=== PATIENT | female | born 1960 | race Caucasian/White ===

== ENCOUNTER 2018-12-05 17:56 | Inpatient (IN) ==
--- NOTE | 2018-12-05 18:21 | Emergency Department Note ---
Recheck HPI - General Source: patient, EMS Limitations: no limitations <Adrianne Christianson - Last Filed: 12/05/18 23:13> - General Source: patient Mode of arrival: ambulatory Limitations: no limitations <Isaac Biswas - Last Filed: 12/06/18 09:46> - General Chief Complaint: Recheck/Abnormal Lab/Rx Stated Complaint: elevated potassium Time Seen by Provider: 12/05/18 18:04 - History of Present Illness HPI Narrative: 58-year-old female in ED for lab recheck. Patient has history of chronic kidney disease and on dialysis for 30+ years. Patient missed her dialysis today. She recently moved from [place] to [place] due to family lives in [facility]. Patient states she had difficult night with blood sugar 60 and had difficult time getting staff to help her raise her blood sugar and check it on a regular basis. Patient's last blood sugar was 85 at 2:30 in the morning. Patient had requested staff to advise dialysis unit she would be missing her appointment today. Patient then had blood draw today and had potassium 5.9. Patient was advised to come into the ED for further evaluation. Patient states she has h istory of [place] without stents, strokes, seizures along with her chronic kidney failure, hyperlipidemia, hypothyroidism, major depressive disorder, GERD, IBS without diarrhea, type 2 diabetes with diabetic kidney complication. Patient is allergic to azithromycin, codeine, Benadryl, Depakote, Phenergan, Robitussin, red dye. (Adrianne Christianson) Patient was sent over from [facility] by Dr. Baldwin, customer assistance associate, for elevated potassium. Patient is on dialysis. I discussed her case with Adrianne ESTRADA and agree with her evaluation management documentation. At shift change full care was handed over to me. At the time of admission to the ER she was not feeling too bad but was concerned about her blood sugars. She missed dialysis today as noted Patient is a full code (Isaac Biswas) - Related Data Home Medications Medication Instructions Recorded Confirmed Atorvastatin [Lipitor] 10 mg PO HS 12/05/18 12/06/18 Cholecalciferol (Vitamin D3) 2,000 unit PO DAILY 12/05/18 12/06/18 [Vitamin D] Clopidogrel Bisulfate [Plavix] 75 mg PO DAILY 12/05/18 12/06/18 Fish Oil 1,000 mg PO DAILY 12/05/18 12/06/18 Fluticasone Propionate [Flovent 50 mcg IH DAILY 12/05/18 12/06/18 Diskus] Folic Acid/Vitamin B Comp W-C 1 tab PO DAILY 12/05/18 12/06/18 [Diatx] Insulin Aspart [Novolog] See Protocol SQ ACHS 12/05/18 12/06/18 Levothyroxine Sodium [Synthroid] 200 mcg PO DAILY 12/05/18 12/06/18 Loperamide [Imodium] 4 mg PO PRN PRN 12/05/18 12/06/18 Losartan [Cozaar] 25 mg PO DAILY 12/05/18 12/06/18 Multivit,Th Iron,Other Min 1 each PO DAILY 12/05/18 12/06/18 [Complete Multivitamin] Pantoprazole [Protonix] 40 mg PO QAMAC 12/05/18 12/06/18 Sevelamer [Renvela] 800 mg PO TIDCC 12/05/18 12/06/18 Acetaminophen [Non-Aspirin] 650 mg PO Q4HP PRN 12/06/18 12/06/18 Albuterol Sulfate [Proair 2 puff IH Q6HP PRN 12/06/18 12/06/18 Respiclick] Bisacodyl [Dulcolax] 10 mg AR DAILYP PRN 12/06/18 12/06/18 Calcitriol [Rocaltrol] 0.5 mcg PO 3XW 12/06/18 12/06/18 Lactobacillus Acidophilus 2 each PO DAILY 12/06/18 12/06/18 [Acidophilus] Loperamide [Imodium] 4 mg PO TIDAC 12/06/18 12/06/18 Ondansetron HCl [Zofran] 8 mg PO Q8H PRN 12/06/18 12/06/18 Allergies Allergy/AdvReac Type Severity Reaction Status Date / Time azithromycin Allergy Unknown Verified 12/05/18 18:03 codeine Allergy Unknown Verified 12/05/18 18:03 diphenhydramine Allergy Unknown Verified 12/05/18 18:03 [From Benadryl] divalproex sodium Allergy Unknown Verified 12/05/18 18:03 [From Depakote] guaifenesin [From Robitussin] Allergy Unknown Verified 12/05/18 18:03 promethazine [From Phenergan] Allergy Unknown Verified 12/05/18 18:03 red (food color) Allergy Unknown Verified 12/05/18 18:03 Review of Systems All systems ED: reviewed and negative except as stated. <Adrianne Christianson - Last Filed: 12/05/18 23:13> All systems ED: reviewed and negative except as stated. <Isaac Biswas - Last Filed: 12/06/18 09:46> Past Medical History - Past Medical History Medical history: Reports: DM, GERD, hyperlipidemia, hypothyroidism, myocardial infarction, renal disease, seizures Psychiatric history: Reports: depression - Social History smoking status: Never smoker <Adrianne Christianson - Last Filed: 12/05/18 23:13> - Past Medical History Source: old records reviewed Medical history: Reports: coronary artery disease, CVA, DM (Insulin-dependent), GERD, hyperlipidemia, hypertension, hypothyroidism, myocardial infarction, renal disease (On dialysis), seizures, other (History of recurrent C. difficile) Surgical history ED: Reports: other (Dialysis catheter) - Social History smoking status: Never smoker <Isaac Biswas - Last Filed: 12/06/18 09:46> Physical Exam Limitations: no limitations General appearance: alert, in no apparent distress Head: atraumatic, normocephalic, normal inspection Eye: Present: normal appearance, PERRL, EOMI. Absent: conjunctival injection ENT: normal exam, normal oropharynx, mucous membranes dry, TM's normal bilaterally, normal external ear exam Neck: Present: normal inspection. Absent: tenderness, lymphadenopathy Chest: Present: normal inspection, symmetric chest wall rise. Absent: tenderness Respiratory: Present: normal lung sounds bilaterally. Absent: respiratory distress, rales/crackles, wheezes Cardiovascular: Present: regular rate, normal rhythm. Absent: systolic murmur, diastolic murmur Abdominal: Present: soft, normal bowel sounds. Absent: distention, tenderness, guarding, rebound, rigidity Extremities: Present: normal inspection. Absent: pedal edema Back: Present: normal inspection Neurological: Present: alert, oriented X3 Psychiatric: Present: normal affect, normal mood. Absent: depressed, agitated, anxious Skin: Present: warm, dry, intact, normal color. Absent: cyanosis, diaphoresis, erythema <MeghanAdrianne Toshia - Last Filed: 12/05/18 23:13> Vital Signs Temperature 97.2 F 12/05/18 17:57 Pulse Rate 87 12/05/18 17:57 Respiratory Rate 18 12/05/18 17:57 Blood Pressure 124/69 12/05/18 17:57 Pulse Oximetry (%) 97 12/05/18 17:57 Temperature 98.1 F 12/06/18 07:00 Pulse Rate 90 12/06/18 04:00 Respiratory Rate 18 12/06/18 07:00 Blood Pressure 137/84 12/06/18 07:00 Pulse Oximetry (%) 97 12/06/18 07:00 Recheck/Abnormal Lab/Rx - Lab Data Lab results reviewed: Yes I reviewed the patient's lab results. Result diagrams: 12/05/18 21:16 12/05/18 18:58 - EKG Data EKG attestation: Yes I reviewed and interpreted this EKG. EKG shows normal: sinus rhythm <MeghanAdrianne Toshia - Last Filed: 12/05/18 23:13> - Medical Records Medical records reviewed: Yes I reviewed the patient's medical records. - Lab Data Lab results reviewed: Yes I reviewed the patient's lab results. Result diagrams: 12/05/18 21:16 12/06/18 04:40 - EKG Data EKG attestation: Yes I reviewed and interpreted this EKG. <Isaac Biswas - Last Filed: 12/06/18 09:46> - MDM Narrative Medical decision making narrative: CMP confirmed 5.9 potassium. Hyperkalemia protocol began: 1000mg Calcium chloride, 10 heart neb, 60gm Kayexalate. When CBC returns will be consulted. Nurses attempted multiple times to place an IV and patient moved causing IV to be unsuccessful so Pt did not receive calcium chloride. advised patient needs to be admitted and will have dialysis in the morning. also stated if patient has any type of crisis during the night she can b e contacted. consulted throughout patient procedures, at end of this provider shift continued care prior to hospitalist accepting patient. (Adrianne Christianson) - Medical Records I reviewed her notes from shelter facility (Isaac Biswas) - Lab Data Lab results narrative: Lab called and advised they believed the CBC specimen was not adequate and they will redraw and run the numbers again. (Adrianne Christianson) Lab Results 12/05/18 12/05/18 12/05/18 Range/Units 18:58 18:58 21:16 WBC 3.3 L (4.5-11.0) K/mcL RBC 1.90 L (4.00-5.20) M/mcL Hgb 6.2 L* (12.0-15.0) g/dL Hct 17.7 L* (36.0-48.0) % POC Hct 34.0 L (36.0-48.0) % MCV 93.2 (80.0-100.0) fL MCH 32.9 (26.0-34.0) pg MCHC 35.3 (31.0-36.0) g/dL RDW 17.7 H (11.5-14.5) % Plt Count 103 L (140-440) K/mcL MPV 7.7 (7.4-10.4) fL Gran % 63.9 (38.0-78.0) % Lymph % (Auto) 23.0 (15.5-49.0) % Tyler % (Auto) 8.4 (1.0-12.0) % Eos % (Auto) 4.2 (0.0-7.0) % Baso % (Auto) 0.5 (0.0-2.0) % Gran # 2.1 (1.8-8.0) K/mcL Lymph # (Auto) 0.8 L (1.5-4.8) K/mcL Tyler # (Auto) 0.3 (0.1-0.9) K/mcL Eos # (Auto) 0.1 (0.0-0.7) K/mcL Baso # (Auto) 0 (0.0-0.3) K/mcL POC Sodium 138 (133-145) mmol/L Sodium 136 (133-145) mmol/L POC Potassium 5.6 H (3.3-5.1) mmol/L Potassium 5.9 H* (3.3-5.1) mmol/L POC Chloride 104 (96-108) mmol/L Chloride 98 (96-108) mmol/L Carbon Dioxide 18 L (22-30) mmol/L POC Total CO2 23 (22-30) mmol/L Anion Gap 20.0 H (8-16) POC BUN 63 H (6-20) mg/dl BUN 65 H (6-20) mg/dl Creatinine 6.8 H* (0.6-1.1) mg/dl POC Creatinine 7.5 H* (0.6-1.1) mg/dl GFR Calculation 6 Glucose 196 H (70-105) mg/dL POC Glucose 184 H (70-105) mg/dL Calcium 8.6 (8.6-10.4) mg/dl POC WB Ioniz Calcium 1.05 L (1.16-1.32) mmol/L Total Bilirubin 0.2 (0.0-1.0) mg/dL AST 21 (0-37) U/l ALT 26 (0-40) U/l Alkaline Phosphatase 74 (39-117) U/L Total Protein 7.0 (5.9-8.4) gm/dL Albumin 4.0 (3.2-5.2) gm/dL Globulin 3.0 (2.2-3.7) gm/dL Albumin/Globulin Ratio 1.3 (1.0-2.3) 12/05/18 12/05/18 Range/Units 21:16 23:13 WBC 6.3 (4.5-11.0) K/mcL RBC 3.47 L (4.00-5.20) M/mcL Hgb 10.3 L (12.0-15.0) g/dL Hct 32.1 L (36.0-48.0) % POC Hct 34.0 L (36.0-48.0) % MCV 92.3 (80.0-100.0) fL MCH 29.7 (26.0-34.0) pg MCHC 32.2 (31.0-36.0) g/dL RDW 17.5 H (11.5-14.5) % Plt Count 207 (140-440) K/mcL MPV 7.9 (7.4-10.4) fL Gran % 60.9 (38.0-78.0) % Lymph % (Auto) 26.2 (15.5-49.0) % Tyler % (Auto) 8.2 (1.0-12.0) % Eos % (Auto) 4.2 (0.0-7.0) % Baso % (Auto) 0.5 (0.0-2.0) % Gran # 3.8 (1.8-8.0) K/mcL Lymph # (Auto) 1.6 (1.5-4.8) K/mcL Tyler # (Auto) 0.5 (0.1-0.9) K/mcL Eos # (Auto) 0.3 (0.0-0.7) K/mcL Baso # (Auto) 0 (0.0-0.3) K/mcL POC Sodium 141 (133-145) mmol/L Sodium (133-145) mmol/L POC Potassium 4.6 (3.3-5.1) mmol/L Potassium (3.3-5.1) mmol/L POC Chloride 105 (96-108) mmol/L Chloride (96-108) mmol/L Carbon Dioxide (22-30) mmol/L POC Total CO2 19 L (22-30) mmol/L Anion Gap (8-16) POC BUN 62 H (6-20) mg/dl BUN (6-20) mg/dl Creatinine (0.6-1.1) mg/dl POC Creatinine 8.1 H* (0.6-1.1) mg/dl GFR Calculation Glucose (70-105) mg/dL POC Glucose 215 H (70-105) mg/dL Calcium (8.6-10.4) mg/dl POC WB Ioniz Calcium 1.07 L (1.16-1.32) mmol/L Total Bilirubin (0.0-1.0) mg/dL AST (0-37) U/l ALT (0-40) U/l Alkaline Phosphatase (39-117) U/L Total Protein (5.9-8.4) gm/dL Albumin (3.2-5.2) gm/dL Globulin (2.2-3.7) gm/dL Albumin/Globulin Ratio (1.0-2.3) - EKG Data EKG results narrative: EKG shows sinus rhythm with a left axis deviation no peak T waves (Isaac Biswas) Disposition <Adrianne Christianson - Last Filed: 12/05/18 23:13> Pt seen by CLINIC SUPERVISOR/PA only: No <Isaac iBswas - Last Filed: 12/06/18 09:46> Clinical Impression: Hyperkalemia Renal failure, chronic Qualifiers: Chronic kidney disease stage: stage 5 Qualified Code(s): N18.5 - Chronic kidney disease, stage 5 Diabetes type 2, uncontrolled Qualifiers: Glycemic state: with hyperglycemia Qualified Code(s): E11.65 - Type 2 diabetes mellitus with hyperglycemia Summary: After reevaluation with laboratory patient is given hyperkalemia protocol -see orders. Adrianne ESTRADA discussed the case with Dr. Baldwin who wanted the patient admitted for observation and management of her hyperkalemia and then dialysis tomorrow. Both Adrianne and Michelle reviewed the plan of care and I discussed the case with our hospitalist Dr. Meza who agreed to accept patient for further care and evaluation in the hospital. I agreed to write some transition orders for Dr. Meaz. Plan for dialysis tomorrow Patient was generally frustrated with her health care situation but especially with getting albuterol to drive potassium lower. It gave her significant jitters she was frustrated about that-I tried to reassure her that this would go away Incidentally noted that the patient is a difficult stick and vascular access is difficult. This did limit some of her interventions. This also added to her frustration (Isaac Biswas) Disposition: Xfer As Inpt ([facility]) Condition: Fair
[2018-12-05 19:51] LABS: Basophils # (Auto) 0 K/mcL (0.0-0.3); Basophils % (Auto) 0.5 % (0.0-2.0); Eosinophils # (Auto) 0.1 K/mcL (0.0-0.7); Eosinophils % (Auto) 4.2 % (0.0-7.0); Granulocytes % (Auto) 63.9 % (38.0-78.0); Lymphocytes # (Auto) 0.8 K/mcL (1.5-4.8); Mean Cell Volume 93.2 fL (80.0-100.0); Mean Corpuscular HGB Conc 35.3 g/dL (31.0-36.0); Monocytes # (Auto) 0.3 K/mcL (0.1-0.9); Monocytes % (Auto) 8.4 % (1.0-12.0); Platelet Count 103 K/mcL (140-440); Red Cell Distribution Width 17.7 % (11.5-14.5)
[2018-12-05 20:03] LABS: ALT/SGPT 26 U/l (0-40); Albumin/Globulin Ratio 1.3 (1.0-2.3); Alkaline Phosphatase 74 U/L (39-117); Blood Urea Nitrogen 65 mg/dl (6-20)
[2018-12-05] MEDS ORDERED: ALBUTEROL SULFATE 5 MG/ML NEB SOLUTION BOTTLE NEB ONE (20:05)
[2018-12-05] MEDS ORDERED: SODIUM POLYSTYRENE SULFONATE 15 GM/60 ML SUSPENSION PO ONE (20:05)
[2018-12-05] MEDS: CALCIUM CHLORIDE 1,000 MG/10 ML SYRINGE IV ONE ×2 (20:15→21:36)
[2018-12-05] MEDS ORDERED: SODIUM POLYSTYRENE SULFONATE 15 GM/60 ML SUSPENSION ONE ×2 (20:19→20:20)
[2018-12-05 22:19] LABS: Basophils # (Auto) 0 K/mcL (0.0-0.3); Basophils % (Auto) 0.5 % (0.0-2.0); Eosinophils # (Auto) 0.3 K/mcL (0.0-0.7); Eosinophils % (Auto) 4.2 % (0.0-7.0); Granulocytes % (Auto) 60.9 % (38.0-78.0); Lymphocytes # (Auto) 1.6 K/mcL (1.5-4.8); Lymphocytes % (Auto) 26.2 % (15.5-49.0); Mean Cell Volume 92.3 fL (80.0-100.0); Mean Corpuscular HGB Conc 32.2 g/dL (31.0-36.0); Monocytes # (Auto) 0.5 K/mcL (0.1-0.9); Monocytes % (Auto) 8.2 % (1.0-12.0); Platelet Count 207 K/mcL (140-440); RBC 3.47 M/mcL (4.00-5.20); Red Cell Distribution Width 17.5 % (11.5-14.5)
[2018-12-05] MEDS ORDERED: ACETAMINOPHEN 325 MG TABLET PO PRN (22:56)
[2018-12-05] MEDS ORDERED: ONDANSETRON 4 MG/2 ML VIAL IV PRN (22:56)
[2018-12-05] MEDS ORDERED: ONDANSETRON 4 MG ODT TABLET SL PRN (23:09)
--- NOTE | 2018-12-05 23:20 | Internal Med History&Physical ---
Medical - H&P: [facility] Patient information: Note initiated : 12/05/18 at 11:19 pm Service Date, if different from initiated Date: [] Patient: Silvia Palma a 58 y/o F admitted on for elevated potassium. Chief Complaint: [] Chief complaint: elevated K History of present illness: Ms. Palma is a 58 year old F with a history of end-stage renal disease on hemodialysis. Patient has been getting regular HD and currently residing at [place]. Yesterday she missed her dialysis because she was feeling weak shaky and had an episode of low blood sugar. Subsequently lab work reveals potassium 5.9 and was referred to the ER. Patient was managed on hyperkalemia protocol and hospitalist service was consulted for admission. Flange Machine Operator was consulted for hemodialysis in the morning. Patient would likely have a short stay and will be discharged after dialysis At the time evaluation patient denies headache photophobia but she appears weak and lethargic. She denies cough, diarrhea, dysuria, myalgias. Review of systems 10 point review system was performed and is negative except for one discussed above Medical - H&P: PMH Medical history: ESRD on HD Hypothyroidism Hypertension GERD Coronary disease Hyperlipidemia History of reactive airway disease Intermittent diarrhea Pertinent family history: Noncontributory Social history: Denies smoking or alcoholism Resides at [place] Medical - H&P: Meds Home Medications Medication Instructions Recorded Confirmed Type Atorvastatin [Lipitor] 10 mg PO HS 12/05/18 12/06/18 History Cholecalciferol (Vitamin D3) 2,000 unit PO DAILY 12/05/18 12/06/18 History [Vitamin D] Clopidogrel Bisulfate [Plavix] 75 mg PO DAILY 12/05/18 12/06/18 History Fish Oil 1,000 mg PO DAILY 12/05/18 12/06/18 History Fluticasone Propionate [Flovent 50 mcg IH DAILY 12/05/18 12/06/18 History Diskus] Folic Acid/Vitamin B Comp W-C 1 tab PO DAILY 12/05/18 12/06/18 History [Diatx] Insulin Aspart [Novolog] See Protocol SQ ACHS 12/05/18 12/06/18 History Levothyroxine Sodium [Synthroid] 200 mcg PO DAILY 12/05/18 12/06/18 History Loperamide [Imodium] 4 mg PO PRN PRN 12/05/18 12/06/18 History Losartan [Cozaar] 25 mg PO DAILY 12/05/18 12/06/18 History Multivit,Th Iron,Other Min 1 each PO DAILY 12/05/18 12/06/18 History [Complete Multivitamin] Pantoprazole [Protonix] 40 mg PO QAMAC 12/05/18 12/06/18 History Sevelamer [Renvela] 800 mg PO TIDCC 12/05/18 12/06/18 History Acetaminophen [Non-Aspirin] 650 mg PO Q4HP PRN 12/06/18 12/06/18 History Albuterol Sulfate [Proair 2 puff IH Q6HP PRN 12/06/18 12/06/18 History Respiclick] Bisacodyl [Dulcolax] 10 mg [place] DAILYP PRN 12/06/18 12/06/18 History Calcitriol [Rocaltrol] 0.5 mcg PO 3XW 12/06/18 12/06/18 History Lactobacillus Acidophilus 2 each PO DAILY 12/06/18 12/06/18 History [Acidophilus] Loperamide [Imodium] 4 mg PO TIDAC 12/06/18 12/06/18 History Ondansetron HCl [Zofran] 8 mg PO Q8H PRN 12/06/18 12/06/18 History Allergies Allergy/AdvReac Type Severity Reaction Status Date / Time azithromycin Allergy Unknown Verified 12/05/18 18:03 codeine Allergy Unknown Verified 12/05/18 18:03 diphenhydramine Allergy Unknown Verified 12/05/18 18:03 [From Benadryl] divalproex sodium Allergy Unknown Verified 12/05/18 18:03 [From Depakote] guaifenesin [From Robitussin] Allergy Unknown Verified 12/05/18 18:03 promethazine [From Phenergan] Allergy Unknown Verified 12/05/18 18:03 red (food color) Allergy Unknown Verified 12/05/18 18:03 Medical - H&P: Exam - Constitutional Vitals: Temp Pulse Resp BP Pulse Ox 97.2 F 76 16 142/79 97 12/05/18 17:57 12/05/18 20:16 12/05/18 22:04 12/05/18 20:16 01/05/19 20:16 General appearance: no acute distress Exam: Appears lethargic Oriented No labored breathing Pupils symmetric Oral cavity dry No ear nose discharge S1-S2 regular rhythm Diminished breath sounds bases Abdomen soft Lower extremity no cyanosis or clubbing Psych alert cooperative Skin no suspicious lesion Medical - H&P: Reslt - Labs CBC & Chem 7: 12/05/18 21:16 12/06/18 04:40 Labs: Short CBC 12/05/18 12/05/18 Range/Units 18:58 21:16 WBC 3.3 L 6.3 (4.5-11.0) K/mcL Hgb 6.2 L* 10.3 L (12.0-15.0) g/dL Hct 17.7 L* 32.1 L (36.0-48.0) % Plt Count 103 L 207 (140-440) K/mcL BMP 12/05/18 18:58 Sodium 136 Potassium 5.9 H* Chloride 98 Carbon Dioxide 18 L BUN 65 H Creatinine 6.8 H* Glucose 196 H Calcium 8.6 Liver Function 12/05/18 Range/Units 18:58 Total Bilirubin 0.2 (0.0-1.0) mg/dL AST 21 (0-37) U/l ALT 26 (0-40) U/l Alkaline Phosphatase 74 (39-117) U/L Albumin 4.0 (3.2-5.2) gm/dL Medical - H&P: A/P (1) Hyperkalemia Current visit: Yes Status: Acute * Hypokalemia-status post hyperkalemia protocol in the ER. Nephrology consulted for hemodialysis * DM type II-hold long-acting insulin in light of hypoglycemia. Will need dose titration on discharge. Continue sliding scale insulin/consistent carbohydrate diet * History of hypertension continue losartan * Hyperlipidemia continue statin * Hypothyroidism continue thyroxine * Full code * Prophylaxis heparin Plan * Inpatient admission for hemodialysis * nephrology consult * Pre-existing medication management as above * Titrate Lantus and monitor for hypoglycemia
[2018-12-06] MEDS ORDERED: ONDANSETRON 4 MG/2 ML VIAL IV PRN (00:47)
[2018-12-06] MEDS ORDERED: ACETAMINOPHEN 325 MG TABLET PO ONE (02:19)
[2018-12-06] MEDS: ACETAMINOPHEN 325 MG TABLET PO PRN ×4 (02:22→20:16)
[2018-12-06 06:11] LABS: ALT/SGPT 29 U/l (0-40); Albumin 3.6 gm/dL (3.2-5.2); Albumin/Globulin Ratio 1.3 (1.0-2.3); Alkaline Phosphatase 65 U/L (39-117); Bilirubin,Direct < 0.2 mg/dL (0.0-0.3); Blood Urea Nitrogen 71 mg/dl (6-20); Gamma Glutamyl Transpeptidase 19 U/L (5-36); Uric Acid 4.6 mg/dL (2.5-8.0)
--- NOTE | 2018-12-06 06:45 | Internal Med Progress Note ---
Medical - PN: Subj Patient information: Note initiated : 12/06/18 at 6:42 am Service Date, if different from initiated Date: [] Patient: Silvia Palma a 58 y/o F admitted on 12/06/18 for elevated potassium. Chief Complaint: [] Interval history: Ms. Palma is a 58 year old F with a history of end-stage renal disease on hemodialysis. Patient has been getting regular HD and currently residing at [place]. Yesterday she missed her dialysis because she was feeling weak shaky and had an episode of low blood sugar. Subsequently lab work reveals potassium 5.9 and was referred to the ER. Patient was managed on hyperkalemia protocol and hospitalist service was consulted for admission. Senior Animal Trainer was consulted for hemodialysis in the morning. Patient would likely have a short stay and will be discharged after dialysis At the time evaluation patient denies headache photophobia but she appears weak and lethargic. She denies cough, diarrhea, dysuria, myalgias. 12/06-patient doing well. No overnight events. Potassium down to 4.8. Hemodialysis today. Denies active concerns. Blood glucose 219. Continue CCD - Constitutional Vitals: Vital Signs Temp Pulse Resp BP Pulse Ox 98.4 F 90 18 120/58 97 12/06/18 04:00 12/06/18 04:00 12/06/18 04:00 12/06/18 04:00 12/06/18 04:00 Period Temp Pulse Resp BP Sys/Shah Pulse Ox Last 24 Hr 97.2 F-98.4 F 72-105 10-27 103-150/58-106 97-100 Intake and Output 12/05/18 12/06/18 12/06/18 21:59 05:59 13:59 Intake Total 800 / 800 Balance 800 / 800 Weight 118 lb 118 lb Intake & Output: Intake & Output 12/05/18 12/06/18 12/06/18 21:59 05:59 13:59 Intake Total 800 / 800 Balance 800 / 800 Weight 118 lb 118 lb Intake: Oral 800 / 800 Other: Stool Size Large Stool Color Brown Gigi Colored Stool Consistency Liquid # Bowel Movements 1 # of times incontinent of 1 Bowels Medical - PN: Obj Da - Labs CBC & Chem 7: 12/05/18 21:16 12/06/18 04:40 Labs: Abnormal Lab Results 12/06/18 12/05/18 12/05/18 04:40 23:13 21:16 WBC RBC 3.47 L Hgb 10.3 L Hct 32.1 L POC Hct 34.0 L RDW 17.5 H Plt Count Lymph # (Auto) POC Potassium Potassium Carbon Dioxide POC Total CO2 19 L Anion Gap 20.0 H POC BUN 62 H BUN 71 H Creatinine 7.9 H* POC Creatinine 8.1 H* Glucose 219 H POC Glucose 215 H POC WB Ioniz Calcium 1.07 L Phosphorus 7.4 H* Magnesium 2.6 H Triglycerides 173 H 12/05/18 12/05/18 12/05/18 21:16 18:58 18:58 WBC 3.3 L RBC 1.90 L Hgb 6.2 L* Hct 17.7 L* POC Hct 34.0 L RDW 17.7 H Plt Count 103 L Lymph # (Auto) 0.8 L POC Potassium 5.6 H Potassium 5.9 H* Carbon Dioxide 18 L POC Total CO2 Anion Gap 20.0 H POC BUN 63 H BUN 65 H Creatinine 6.8 H* POC Creatinine 7.5 H* Glucose 196 H POC Glucose 184 H POC WB Ioniz Calcium 1.05 L Phosphorus Magnesium Triglycerides Meds: Medications Acetaminophen (Tylenol) 650 mg PO Q4-6HP PRN PRN Reason: PAIN/FEVER > 101 Last Admin: 12/06/18 02:22 Dose: 650 mg Documented by: Atorvastatin Calcium (Lipitor) 10 mg PO HS [facility] Clopidogrel Bisulfate (Plavix) 75 mg PO DAILY [facility] Docusate Sodium (Colace) 100 mg PO BID [facility] Fish Oil (Fish Oil) 1,000 mg PO DAILY [facility] Heparin Sodium (Porcine) (Heparin) 5,000 unit SQ Q12 [facility] Loperamide HCl (Imodium) 2 mg PO PRN PRN PRN Reason: Diarrhea Losartan Potassium (Cozaar) 25 mg PO DAILY [facility] Multivit/Ca Carb/B Cmplx/FA/Prenat (Diatx) 1 tab PO DAILY [facility] Non-Formulary Medication (Cholecalciferol (Vitamin D3) [Vitamin D3]) 2,000 unit PO DAILY [facility] Non-Formulary Medication (Fluticasone Propionate [Flovent Diskus]) 50 mcg IH DAILY [facility] Non-Formulary Medication (Levothyroxine Sodium [Synthroid]) 200 mcg PO DAILY [facility] Non-Formulary Medication (Multivit,Th Iron,Other Min [Complete Multivitamin]) 1 each PO DAILY [facility] Ondansetron HCl (Zofran) 4 mg IV Q4-6HP PRN PRN Reason: Nausea And Vomiting Pantoprazole Sodium (Protonix) 40 mg PO QAMAC [facility] Senna/Docusate Sodium (Senna Plus Tablet) 1 tab PO HS [facility]ICK Sevelamer Carbonate (Renvela) 800 mg PO TIDCC [facility] Medical - PN: A/P - Time Spent With Patient Total time spent is greater than 50% in coordination of care (as documented) at patient's floor/unit and/or counseling patient: 15 - 24 minutes (1) Hyperkalemia Status: Acute Assessment and plan: * Hypokalemia-clinically improved. 1.8 today. Hemodialysis today. Managed by nephrology. * DM type II-continue CCD/prandial insulin. Optimize management as outpatient. * History of hypertension continue losartan * Hyperlipidemia continue statin * Hypothyroidism continue thyroxine * Full code * Prophylaxis heparin Plan * HD per nephrology * Pleasant male condition management above * likely discharge post hemodialysis in 24 hours Current Visit: Yes Medical - PN: Qual - Stroke Symptom Onset Unknown: No - VTE Deep Vein Thrombosis/Pulmonary Embolism Present on Admission: No
[2018-12-06] MEDS: FISH OIL 1,000 MG CAPSULE PO SCH (08:20)
[2018-12-06] MEDS: DOCUSATE SODIUM 100 MG CAPSULE PO SCH ×2 (08:20→20:15)
[2018-12-06] MEDS: MULTIVIT,THER IRON,CA,FA & MIN 1 TABLET PO SCH (08:22)
[2018-12-06] MEDS: FOLIC ACID/VITAMIN B COMP W-C 1 TAB TABLET PO SCH (08:22)
[2018-12-06] MEDS: HEPARIN 5,000 UNIT/ML VIAL SQ SCH ×2 (08:22→20:15)
[2018-12-06] MEDS: FLUTICASONE HFA 110MCG INHALER INH SCH ×2 (08:22→21:15)
[2018-12-06] MEDS: CLOPIDOGREL 75 MG TABLET PO SCH (08:22)
[2018-12-06] MEDS: PANTOPRAZOLE 40 MG TABLET PO SCH (08:22)
[2018-12-06] MEDS: VITAMIN D3 1,000 UNIT TABLET PO SCH (08:22)
[2018-12-06] MEDS: LEVOTHYROXINE 100 MCG TABLET PO SCH (08:22)
[2018-12-06] MEDS: SEVELAMER 800 MG TABLET PO SCH ×3 (08:22→17:17)
[2018-12-06] MEDS ORDERED: LOSARTAN 25 MG TABLET PO SCH (09:00)
[2018-12-06] MEDS ORDERED: DEXTROSE 50% 50 ML VIAL IV PRN (10:21)
[2018-12-06] MEDS ORDERED: DEXTROSE 31 GM ORAL.SUSP PO PRN (10:21)
[2018-12-06] MEDS: INSULIN LISPRO 1 UNIT/0.01 ML UNIT SQ SCH ×3 (11:48→20:22)
--- NOTE | 2018-12-06 12:03 | Discharge Summary ---
Medical - DS: Prov Patient information: Note initiated : 12/06/18 at 11:57 am Service Date, if different from initiated Date: [] Patient: Silvia Palma 58 y/o F admitted on 12/06/18 for elevated potassium. Chief Complaint: [] Date of admission: 12/06/18 00:40 Discharge date: 12/07/18 Primary care physician: Starla Grayson Consults: 12/05/18 Consult to Physician [CONS] Stat Comment: Consulting Provider: Aris Meza Reason For Exam: Physician to Consult Medical - DS: Meds - Discharge Medications Active and Home Medications: Home Medications Atorvastatin [Lipitor] 10 mg PO HS 12/05/18 [History Confirmed 12/06/18 Last Taken Unknown] Cholecalciferol (Vitamin D3) [Vitamin D] 2,000 unit PO DAILY 12/05/18 [History Confirmed 12/06/18 Last Taken Unknown] Clopidogrel Bisulfate [Plavix] 75 mg PO DAILY 12/05/18 [History Confirmed 12/06/18 Last Taken Unknown] Fish Oil 1,000 mg PO DAILY 12/05/18 [History Confirmed 12/06/18 Last Taken Unknown] Fluticasone Propionate [Flovent Diskus] 50 mcg IH DAILY 12/05/18 [History Confirmed 12/06/18 Last Taken Unknown] Folic Acid/Vitamin B Comp W-C [Diatx] 1 tab PO DAILY 12/05/18 [History Confirmed 12/06/18 Last Taken Unknown] Insulin Aspart [Novolog] See Protocol SQ ACHS 12/05/18 [History Confirmed 12/06/18 Last Taken Unknown] Levothyroxine Sodium [Synthroid] 200 mcg PO DAILY 12/05/18 [History Confirmed 12/06/18 Last Taken Unknown] Loperamide [Imodium] 4 mg PO PRN PRN 12/05/18 [History Confirmed 12/06/18 Last Taken Unknown] Losartan [Cozaar] 25 mg PO DAILY 12/05/18 [History Confirmed 12/06/18 Last Taken Unknown] Multivit,Th Iron,Other Min [Complete Multivitamin] 1 each PO DAILY 12/05/18 [History Confirmed 12/06/18 Last Taken Unknown] Pantoprazole [Protonix] 40 mg PO QAMAC 12/05/18 [History Confirmed 12/06/18 Last Taken Unknown] Sevelamer [Renvela] 800 mg PO TIDCC 12/05/18 [History Confirmed 12/06/18 Last Taken Unknown] Acetaminophen [Non-Aspirin] 650 mg PO Q4HP PRN 12/06/18 [History Confirmed 05/19 Last Taken Unknown] Albuterol Sulfate [Proair Respiclick] 2 puff IH Q6HP PRN 12/06/18 [History Confirmed 12/06/18 Last Taken Unknown] Bisacodyl [Dulcolax] 10 mg ID DAILYP PRN 12/06/18 [History Confirmed 12/06/18 Last Taken Unknown] Calcitriol [Rocaltrol] 0.5 mcg PO 3XW 12/06/18 [History Confirmed 12/06/18 Last Taken Unknown] Lactobacillus Acidophilus [Acidophilus] 2 each PO DAILY 12/06/18 [History Confirmed 12/06/18 Last Taken Unknown] Loperamide [Imodium] 4 mg PO TIDAC 12/06/18 [History Confirmed 12/06/18 Last Taken Unknown] Ondansetron HCl [Zofran] 8 mg PO Q8H PRN 12/06/18 [History Confirmed 12/06/18 Last Taken Unknown] Home Medications Atorvastatin [Lipitor] 10 mg PO HS 12/05/18 [History Confirmed 12/06/18 Last Taken Unknown] Cholecalciferol (Vitamin D3) [Vitamin D3] 2,000 unit PO DAILY 12/05/18 [History Confirmed 12/06/18 Last Taken Unknown] Clopidogrel Bisulfate [Plavix] 75 mg PO DAILY 12/05/18 [History Confirmed 12/06/18 Last Taken Unknown] Fish Oil 1,000 mg PO DAILY 12/05/18 [History Confirmed 12/06/18 Last Taken Unknown] Fluticasone Propionate [Flovent Diskus] 50 mcg IH DAILY 12/05/18 [History Confirmed 12/06/18 Last Taken Unknown] Folic Acid/Vitamin B Comp W-C [Diatx] 1 tab PO DAILY 12/05/18 [History Confirmed 12/06/18 Last Taken Unknown] Insulin Aspart [Novolog] See Protocol SQ ACHS 12/05/18 [History Confirmed 12/06/18 Last Taken Unknown] Levothyroxine Sodium [Synthroid] 200 mcg PO DAILY 12/05/18 [History Confirmed 12/06/18 Last Taken Unknown] Loperamide [Imodium] 4 mg PO PRN PRN 12/05/18 [History Confirmed 12/06/18 Last Taken Unknown] Multivit,Th Iron,Other Min [Complete Multivitamin] 1 each PO DAILY 12/05/18 [History Confirmed 12/06/18 Last Taken Unknown] Pantoprazole [Protonix] 40 mg PO QAMAC 12/05/18 [History Confirmed 12/06/18 Last Taken Unknown] Sevelamer [Renvela] 800 mg PO TIDCC 12/05/18 [History Confirmed 12/06/18 Last Taken Unknown] Acetaminophen [Non-Aspirin] 650 mg PO Q4HP PRN 12/06/18 [History Confirmed 12/06/18 Last Taken Unknown] Albuterol Sulfate [Proair Respiclick] 2 puff IH Q6HP PRN 12/06/18 [History Confirmed 12/06/18 Last Taken Unknown] Bisacodyl [Dulcolax] 10 mg ID DAILYP PRN 12/06/18 [History Confirmed 12/06/18 Last Taken Unknown] Calcitriol [Rocaltrol] 0.5 mcg PO 3XW 12/06/18 [History Confirmed 12/06/18 Last Taken Unknown] Lactobacillus Acidophilus [Acidophilus] 2 each PO DAILY 12/06/18 [History Confirmed 12/06/18 Last Taken Unknown] Loperamide [Imodium] 4 mg PO TIDAC 12/06/18 [History Confirmed 12/06/18 Last Taken Unknown] Ondansetron HCl [Zofran] 8 mg PO Q8H PRN 12/06/18 [History Confirmed 12/06/18 Last Taken Unknown] Medical - DS: Hosp Hospital course: Ms. Palma is a 58 year old F with a history of end-stage renal disease on hemodialysis. Patient has been getting regular HD and currently residing at [facility]. Yesterday she missed her dialysis because she was feeling weak shaky and had an episode of low blood sugar. Subsequently lab work reveals potassium 5.9 and was referred to the ER. Patient was managed on hyperkalemia protocol and hospitalist service was consulted for admission. Director Of Business Applications was consulted for hemodialysis in the morning. Patient would likely have a short stay and will be discharged after dialysis At the time evaluation patient denies headache photophobia but she appears weak and lethargic. She denies cough, diarrhea, dysuria, myalgias. 12/06-patient doing well. No overnight events. Potassium down to 4.8. Hemodialysis today. Denies active concerns. Blood glucose 219. Continue CCD 12/07 Overnight events, feeling good. Stable for discharge. Discharge diagnosis: Hyperkalemia end-stage renal disease diabetes hypertension hyperlipidemia h - Time Spent with Patient Total time spent providing and/or coordinating discharge services: Medical - DS: Exam - Constitutional Vitals: Vital Signs Temp Pulse Pulse Pulse Resp BP BP 12/06/18 11:50 81 194/96 12/06/18 11:15 98.3 F 83 209/102 12/06/18 07:00 98.1 F 18 137/84 12/06/18 04:00 98.4 F 90 18 120/58 12/06/18 00:50 98.4 F 105 H 18 145/63 12/06/18 00:40 98.4 F 105 H 18 145/63 12/05/18 22:18 19 12/05/18 22:04 16 12/05/18 21:35 27 H 12/05/18 21:03 19 12/05/18 20:16 76 14 142/79 12/05/18 20:01 72 23 H 150/64 12/05/18 19:46 76 10 L 147/86 12/05/18 19:31 75 12 141/61 12/05/18 19:16 77 14 123/106 12/05/18 18:46 84 17 103/89 12/05/18 18:31 88 17 124/69 12/05/18 18:28 84 24 H 114/68 12/05/18 17:57 97.2 F 87 18 124/69 Pulse Ox 12/06/18 11:50 12/06/18 11:15 12/06/18 07:00 97 12/06/18 04:00 97 12/06/18 00:50 97 12/06/18 00:40 97 12/05/18 22:18 12/05/18 22:04 12/05/18 21:35 12/05/18 21:03 12/05/18 20:16 97 12/05/18 20:01 98 12/05/18 19:46 99 12/05/18 19:31 98 12/05/18 19:16 98 12/05/18 18:46 100 12/05/18 18:31 100 12/05/18 18:28 98 12/05/18 17:57 97 Intake and Output 12/05/18 12/06/18 12/06/18 21:59 05:59 13:59 Intake Total 800 / 800 360 / 360 Balance 800 / 800 360 / 360 Intake: Oral 800 / 800 360 / 360 Other: Meal Breakfast Percent of Meal Consumed 100% Feeding Ability Independent Stool Size Large Moderate Stool Color Brown Gigi Colored Stool Consistency Liquid Liquid Watery # Bowel Movements 1 # of times incontinent of 1 Bowels Weight 53.524 kg 53.524 kg Medical - DS: Data Labs on day of discharge: Labs from last 24 hours 12/06/18 12/05/18 12/05/18 04:40 23:13 21:16 WBC 6.3 RBC 3.47 L Hgb 10.3 L Hct 32.1 L POC Hct 34.0 L MCV 92.3 MCH 29.7 MCHC 32.2 RDW 17.5 H Plt Count 207 MPV 7.9 Gran % 60.9 Lymph % (Auto) 26.2 [place] % (Auto) 8.2 Eos % (Auto) 4.2 Baso % (Auto) 0.5 Gran # 3.8 Lymph # (Auto) 1.6 [place] # (Auto) 0.5 Eos # (Auto) 0.3 Baso # (Auto) 0 POC Sodium 141 Sodium 141 POC Potassium 4.6 Potassium 4.8 POC Chloride 105 Chloride 99 Carbon Dioxide 22 POC Total CO2 19 L Anion Gap 20.0 H POC BUN 62 H BUN 71 H Creatinine 7.9 H* POC Creatinine 8.1 H* GFR Calculation 5 Glucose 219 H POC Glucose 215 H Uric Acid 4.6 Calcium 8.6 POC WB Ioniz Calcium 1.07 L Phosphorus 7.4 H* Magnesium 2.6 H Total Bilirubin 0.2 Direct Bilirubin < 0.2 GGT 19 AST 25 ALT 29 Alkaline Phosphatase 65 Lactate Dehydrogenase 241 Total Protein 6.3 Albumin 3.6 Globulin 2.7 Albumin/Globulin Ratio 1.3 Triglycerides 173 H 12/05/18 12/05/18 12/05/18 21:16 18:58 18:58 WBC 3.3 L RBC 1.90 L Hgb 6.2 L* Hct 17.7 L* POC Hct 34.0 L MCV 93.2 MCH 32.9 MCHC 35.3 RDW 17.7 H Plt Count 103 L MPV 7.7 Gran % 63.9 Lymph % (Auto) 23.0 [place] % (Auto) 8.4 Eos % (Auto) 4.2 Baso % (Auto) 0.5 Gran # 2.1 Lymph # (Auto) 0.8 L [place] # (Auto) 0.3 Eos # (Auto) 0.1 Baso # (Auto) 0 POC Sodium 138 Sodium 136 POC Potassium 5.6 H Potassium 5.9 H* POC Chloride 104 Chloride 98 Carbon Dioxide 18 L POC Total CO2 23 Anion Gap 20.0 H POC BUN 63 H BUN 65 H Creatinine 6.8 H* POC Creatinine 7.5 H* GFR Calculation 6 Glucose 196 H POC Glucose 184 H Uric Acid Calcium 8.6 POC WB Ioniz Calcium 1.05 L Phosphorus Magnesium Total Bilirubin 0.2 Direct Bilirubin GGT AST 21 ALT 26 Alkaline Phosphatase 74 Lactate Dehydrogenase Total Protein 7.0 Albumin 4.0 Globulin 3.0 Albumin/Globulin Ratio 1.3 Triglycerides Medical - DS: A/P - Patient/Caregiver Discharge Instructions Activity: increase activity as tolerated Diet: Renal/Consistent Carbs - Follow up Plan Follow up with: Desiree,PCP [Referring] - Robina Baldwin MD [Physician] - Disposition: Home, Self-Care Prognosis: Fair Rehab Potential: Fair Medical - DS: Qual - VTE Deep Vein Thrombosis/Pulmonary Embolism Present on Admission: No
[2018-12-06] MEDS ORDERED: BUTALB/ACETAMINOPHEN/CAFFEINE 1 TABLET PO ONE (15:18)
--- NOTE | 2018-12-06 19:40 | Nephrology Consult Note ---
History of Present Illness - Reason for Consult Patient information: Note initiated : 12/06/18 at 7:37 pm Service Date, if different from initiated Date: [] Patient: Silvia Palma 58 y/o F admitted on 12/06/18 for elevated potassium. Chief Complaint: [] Consult date: 12/05/18 end stage renal disease Requesting physician: Adrianne Christianson - Chief Complaint elevated potassium - History of Present Illness Patient is a 58 y/o female with ESRD on HD who is admitted with elevated potassium She jazmin ESRD and dialyses TTS, however she missed her dialysis yesterday as she had hypoglycemia overnight, she refused to reschedule. Stat K drawn showed hyperkalemia of 5.9, I was trying to arrange her dialysis as outpatient however the patient got sent to ER in the meantime, she was treated medically but repeat K was 5.6, as she was not scheduled for dialysis until friday am she was admitted for management of elevated potassium and possible dialysis. She denies SOB, CP, no edema no GI symptoms she denies any other issues Review of Systems All systems PM: reviewed and no additional remarkable complaints except as stated (as in HPI) Past History Past medical history: ESRD on HD Hypothyroidism Hypertension GERD Coronary disease Hyperlipidemia History of reactive airway disease Intermittent diarrhea Past surgical history: Multiple AVG surgery has TCC Past family history: NOT pertinent Past social history: lives in [facility] no current addictions Medications and Allergies Home Medications Medication Instructions Recorded Confirmed Type Atorvastatin [Lipitor] 10 mg PO HS 12/05/18 12/06/18 History Cholecalciferol (Vitamin D3) 2,000 unit PO DAILY 12/05/18 12/06/18 History [Vitamin D3] Clopidogrel Bisulfate [Plavix] 75 mg PO DAILY 12/05/18 12/06/18 History Fish Oil 1,000 mg PO DAILY 12/05/18 12/06/18 History Fluticasone Propionate [Flovent 50 mcg IH DAILY 12/05/18 12/06/18 History Diskus] Folic Acid/Vitamin B Comp W-C 1 tab PO DAILY 12/05/18 12/06/18 History [Diatx] Insulin Aspart [Novolog] See Protocol SQ ACHS 12/05/18 12/06/18 History Levothyroxine Sodium [Synthroid] 200 mcg PO DAILY 12/05/18 12/06/18 History Loperamide [Imodium] 4 mg PO PRN PRN 12/05/18 12/06/18 History Losartan [Cozaar] 25 mg PO DAILY 12/05/18 12/06/18 History Multivit,Th Iron,Other Min 1 each PO DAILY 12/05/18 12/06/18 History [Complete Multivitamin] Pantoprazole [Protonix] 40 mg PO QAMAC 12/05/18 12/06/18 History Sevelamer [Renvela] 800 mg PO TIDCC 12/05/18 12/06/18 History Acetaminophen [Non-Aspirin] 650 mg PO Q4HP PRN 12/06/18 12/06/18 History Albuterol Sulfate [Proair 2 puff IH Q6HP PRN 12/06/18 12/06/18 History Respiclick] Bisacodyl [Dulcolax] 10 mg RI DAILYP PRN 12/06/18 12/06/18 History Calcitriol [Rocaltrol] 0.5 mcg PO 3XW 12/06/18 12/06/18 History Lactobacillus Acidophilus 2 each PO DAILY 12/06/18 12/06/18 History [Acidophilus] Loperamide [Imodium] 4 mg PO TIDAC 12/06/18 12/06/18 History Ondansetron HCl [Zofran] 8 mg PO Q8H PRN 12/06/18 12/06/18 History Allergies Allergy/AdvReac Type Severity Reaction Status Date / Time azithromycin Allergy Unknown Verified 12/05/18 18:03 codeine Allergy Unknown Verified 12/05/18 18:03 diphenhydramine Allergy Unknown Verified 12/05/18 18:03 [From Benadryl] divalproex sodium Allergy Unknown Verified 12/05/18 18:03 [From Depakote] guaifenesin [From Robitussin] Allergy Unknown Verified 12/05/18 18:03 promethazine [From Phenergan] Allergy Unknown Verified 12/05/18 18:03 red (food color) Allergy Unknown Verified 12/05/18 18:03 Exam - Vital Signs Vital signs: Temp Pulse Resp BP Pulse Ox 99.0 F 95 H 18 133/65 96 12/06/18 19:03 12/06/18 19:03 12/06/18 19:03 12/06/18 19:03 12/06/18 19:03 - General Appearance General appearance: appears started age, chronically ill, frail EENT: mucous membranes moist Neck: no JVD Cardiology: no rub, no edema, normal S1, normal S2 Gastrointestinal: no tenderness, no guarding Integumentary: warm and dry Neurologic: alert and oriented x3 Musculoskeletal: no erythema, no cyanosis Psychiatric: mood/affect appropriate Results - Lab Results 12/05/18 21:16 12/06/18 04:40 Most recent lab results Calcium 8.6 mg/dl (8.6-10.4) 12/06/18 04:40 Phosphorus 7.4 mg/dL (2.7-4.5) H* 12/06/18 04:40 Magnesium 2.6 mg/dL (1.6-2.5) H 12/06/18 04:40 Assessment and Plan (1) ESRD (end stage renal disease) on dialysis Status: Acute (2) Anemia Status: Acute (3) Hyperkalemia Status: Acute - Narrative A/P Narrative: ESRD ON hd with moderate persistent hyperkalemia on admission which improved w ith medical treatment, however patient not due for dialysis until friday, last dialysis on hence will do Hd today HD with her current juan;ysis prescription for 3 hrs, using revaclear dialyser, 2K/2.5Ca, UF to DW of 53kg next HD on friday as scheduled, requested marissa compliant given issues with K losartan held due tot his, please hold on discharge anemia: Hb above threshold for mary will monitor will follow appreciate hospitalist help in managing this patient
[2018-12-06] MEDS ORDERED: ATORVASTATIN 20 MG TABLET PO SCH (21:00)
[2018-12-06] MEDS ORDERED: SENNOSIDES/DOCUSATE SODIUM 1 TAB TABLET PO SCH (21:00)
[2018-12-07] MEDS: ACETAMINOPHEN 325 MG TABLET PO PRN ×2 (01:53→09:28)
[2018-12-07] MEDS: LOPERAMIDE 2 MG CAPSULE PO PRN ×2 (01:53→07:41)
[2018-12-07 06:11] LABS: ALT/SGPT 62 U/l (0-40); Albumin 3.6 gm/dL (3.2-5.2); Albumin/Globulin Ratio 1.2 (1.0-2.3); Alkaline Phosphatase 75 U/L (39-117); Bilirubin,Direct < 0.2 mg/dL (0.0-0.3); Blood Urea Nitrogen 35 mg/dl (6-20); Gamma Glutamyl Transpeptidase 24 U/L (5-36); Uric Acid 2.9 mg/dL (2.5-8.0)
[2018-12-07] MEDS: VITAMIN D3 1,000 UNIT TABLET PO SCH (07:29)
[2018-12-07] MEDS: INSULIN LISPRO 1 UNIT/0.01 ML UNIT SQ SCH ×2 (07:29→11:41)
[2018-12-07] MEDS: FOLIC ACID/VITAMIN B COMP W-C 1 TAB TABLET PO SCH (07:29)
[2018-12-07] MEDS: CLOPIDOGREL 75 MG TABLET PO SCH (07:29)
[2018-12-07] MEDS: LEVOTHYROXINE 100 MCG TABLET PO SCH (07:29)
[2018-12-07] MEDS: SEVELAMER 800 MG TABLET PO SCH ×2 (07:29→12:15)
[2018-12-07] MEDS: HEPARIN 5,000 UNIT/ML VIAL SQ SCH (07:30)
[2018-12-07] MEDS: DOCUSATE SODIUM 100 MG CAPSULE PO SCH (07:30)
[2018-12-07] MEDS: FLUTICASONE HFA 110MCG INHALER INH SCH (07:30)
[2018-12-07] MEDS: FISH OIL 1,000 MG CAPSULE PO SCH (07:30)
[2018-12-07] MEDS: PANTOPRAZOLE 40 MG TABLET PO SCH (07:30)
[2018-12-07] MEDS: MULTIVIT,THER IRON,CA,FA & MIN 1 TABLET PO SCH (07:30)
== END 2018-12-07 13:05 | disposition home or self-care (01) | DRG 640 ==
LOC: ED 17:56 → MEDSUR 12-06 00:40
PROVIDERS: ADMIT Internal Medicine; ATTEND Internal Medicine

== ENCOUNTER 2019-10-21 17:29 | Inpatient (IN) ==
--- NOTE | 2019-10-21 18:13 | Emergency Department Note ---
Altered Mental Status HPI - General Chief Complaint: Altered Mental Status Stated Complaint: altered LOC Time Seen by Provider: 10/21/19 17:57 Source: patient Mode of arrival: wheelchair Limitations: no limitations - History of Present Illness HPI Narrative: This patient returns emergency room after being here last night. She is a dialysis patient and wants to stop dialysis and go on hospice. She missed her dialysis runs on Friday and this week. We have talked to her and she expresses a DNR and desire to go on hospice. She has no one to be with her at home on hospice and so may need to be admitted here initially. - Related Data Home Medications Medication Instructions Recorded Confirmed Clopidogrel Bisulfate [Plavix] 75 mg PO DAILY 12/05/18 10/22/19 Insulin Aspart [Novolog] See Protocol SQ ACHS 12/05/18 12/06/18 B complex-vitamin C-folic acid 0.8 1 tab PO QDAY 07/21/19 07/21/19 mg tablet isosorbide mononitrate 30 mg 30 mg PO QDAY 07/21/19 07/21/19 tablet,extended release 24 hr clonidine HCl 0.2 mg tablet 0.2 mg PO TID PRN 07/27/19 Atorvastatin [Lipitor] 10 mg PO QDAY 10/21/19 10/22/19 Fish Oil 1,000 mg PO DAILY 10/21/19 10/22/19 Cholecalciferol (Vitamin D3) [D3 2,000 unit PO QDAY 10/22/19 10/22/19 Dots] Lisinopril [Zestril] 20 mg PO QDAY 10/22/19 10/22/19 Ondansetron HCl [Zofran] 8 mg PO Q8HP PRN 10/22/19 10/22/19 Previous Rx's Medication Instructions Recorded ramipril 1.25 mg capsule 1.25 mg PO QDAY #30 cap 07/13/19 calcium acetate 667 mg capsule 667 mg PO TID #30 cap 07/21/19 albuterol sulfate 90 mcg/actuation 1 puff INHALATION Q6H PRN #8 g 08/10/19 aerosol inhaler calcitriol 0.5 mcg capsule 0.5 mcg PO 3XW #30 cap 08/10/19 fluticasone propionate 100 1 inh INHALATION BID #60 each 08/10/19 mcg/actuation blister powder for inhalation insulin aspart U-100 100 unit/mL See Rx Instructions SUB-Q TID #15 08/10/19 (3 mL) subcutaneous pen ml MDD 30 units levothyroxine 200 mcg tablet 200 mcg PO QDAY #30 tab 08/10/19 pantoprazole 40 mg tablet,delayed 40 mg PO QDAY #30 tab 08/10/19 release sevelamer carbonate 800 mg tablet 800 mg PO .tidcc #90 tab 08/10/19 sitagliptin 100 mg tablet 100 mg PO QDAY #30 tab 08/10/19 trazodone 50 mg tablet 50 mg PO QHS PRN #30 tab 08/10/19 vitamin B comp no.3-folic acid 1 1 tab PO QDAY #30 tab 08/10/19 mg-vit C 60 mg-biotin 300 mcg tablet HYDROcodone/ACETAMINOPHEN 1 each PO Q6 6 Days #24 tab 10/20/19 [Hydrocodone-Acetamin 10-325 mg] Allergies Allergy/AdvReac Type Severity Reaction Status Date / Time azithromycin Allergy Unknown Verified 10/21/19 17:37 codeine Allergy Unknown Verified 10/21/19 17:37 diphenhydramine Allergy Unknown Verified 10/21/19 17:37 [From Benadryl] divalproex sodium Allergy Unknown Verified 10/21/19 17:37 [From Depakote] guaifenesin [From Robitussin] Allergy Unknown Verified 10/21/19 17:37 promethazine [From Phenergan] Allergy Unknown Verified 10/21/19 17:37 red (food color) Allergy Unknown Verified 10/21/19 17:37 Review of Systems All systems ED: reviewed and negative except as stated. Past Medical History - Past Medical History Medical history: Reports: CAD (coronary artery disease), CVA, DM (Insulin- dependent), GERD, hyperlipidemia, hypertension, hypothyroidism, myocardial infarction, renal disease (On dialysis), seizures, other (History of recurrent C. difficile) Psychiatric history: Reports: depression Surgical history ED: Reports: other (Dialysis catheter) - Social History smoking status: Never smoker Physical Exam This patient has quite a bit of edema of her face. Limitations: no limitations General appearance: lethargic Head: atraumatic Chest: Present: normal inspection Respiratory: Present: rales/crackles Cardiovascular: Present: regular rate, normal rhythm, normal heart sounds Skin: Present: warm, dry Course Vital Signs Temperature 97.1 F 10/21/19 17:29 Pulse Rate 93 H 10/21/19 17:29 Respiratory Rate 18 10/21/19 17:29 Blood Pressure 73/40 10/21/19 17:29 Pulse Oximetry (%) 90 10/21/19 17:29 Temperature 98.5 F 10/22/19 07:23 Pulse Rate 89 10/21/19 20:12 Respiratory Rate 20 10/22/19 07:23 Blood Pressure 81/43 10/22/19 07:23 Pulse Oximetry (%) 96 10/22/19 07:23 Altered Mental Status - MDM Narrative Medical decision making narrative: I discussed this case with the art specialist and she will be admitted to the hospital by Dr. Alcazar. Her plan is to stop dialysis and go on hospice and have end-of-life care. Disposition Pt seen by MORTGAGE LOAN PROCESSING CLERK/PA only: No Clinical Impression: Renal failure Disposition: Xfer As Inpt ([facility]) Condition: Undetermined
--- NOTE | 2019-10-21 19:23 | Internal Med History&Physical ---
Medical - H&P: HPI Patient information: Note initiated : 10/21/19 at 7:21 pm Service Date, if different from initiated Date: [] Patient: Silvia Palma a 59 y/o F admitted on for altered LOC. Chief Complaint: [] History of present illness: Ms. Palma is a 59 year old F with history of end-stage renal disease, diabetes, CAD/CVA/HTN presents the ED for second time in 2 days wanting to go on hospice and stopping dialysis. She is missed at least a week of dialysis. And has been desiring to go hospice but this is been unable to be set up at home and thus presents the ED. Her caretakers have stated she is become more lethargic the past couple days as well. This is discussed with title i teacher. Plan is to admit with comfort care focus and work with case management for possible placement unless she becomes imminent. Review of Systems: Positive headache and nausea, and generalized achy abdominal pain. Denies fever/chills/vomiting/chest pain/cough/dyspnea. Remaining 10 point review of system reviewed negative Medical - H&P: PMH Medical history: Medical History (Last Updated 06/29/19 @ 15:36 by John Mccurdy DO) Chronic anticoagulation (Chronic) History of coronary artery disease (Chronic) History of CVA (cerebrovascular accident) (Chronic) ESRD (end stage renal disease) on dialysis (Chronic) Diabetes type 2, uncontrolled (Chronic) Non-STEMI (non-ST elevated myocardial infarction) (Resolved) Periorbital edema (Chronic) History of depression (Chronic) History of seizures (Chronic) Hypothyroidism (acquired) (Chronic) Renal failure, chronic (Chronic) Anemia (Chronic) Adverse drug event (Resolved) Altered mental status (Resolved) Cervical strain (Resolved) Concussion with loss of consciousness (Resolved) Headache (Resolved) Hyperkalemia (Resolved) Hypertensive urgency (Resolved) Obtundation (Resolved) Past Surgical History (Last Updated 06/29/19 @ 15:37 by John Mccurdy DO) Port-A-Cath in place (Acute) Medical - H&P: Meds Home Medications Medication Instructions Recorded Confirmed Type Clopidogrel Bisulfate [Plavix] 75 mg PO DAILY 12/05/18 07/21/19 History Insulin Aspart [Novolog] See Protocol SQ ACHS 12/05/18 12/06/18 History Pantoprazole [Protonix] 40 mg PO QAMAC 12/05/18 07/21/19 History ramipril 1.25 mg capsule 1.25 mg PO QDAY #30 cap 07/13/19 07/21/19 Rx B complex-vitamin C-folic acid 0.8 1 tab PO QDAY 07/21/19 07/21/19 History mg tablet calcium acetate 667 mg capsule 667 mg PO TID #30 cap 07/21/19 07/21/19 Rx isosorbide mononitrate 30 mg 30 mg PO QDAY 07/21/19 07/21/19 History tablet,extended release 24 hr levothyroxine 200 mcg tablet 125 mcg PO DAILY tab 07/21/19 07/21/19 History clonidine HCl 0.2 mg tablet 0.2 mg PO TID PRN 07/27/19 History albuterol sulfate 90 mcg/actuation 1 puff INHALATION Q6H PRN #8 g 08/10/19 Rx aerosol inhaler atorvastatin 20 mg tablet 20 mg PO HS #30 tab 08/10/19 Rx calcitriol 0.5 mcg capsule 0.5 mcg PO 3XW #30 cap 08/10/19 Rx clopidogrel 75 mg tablet 75 mg PO QDAY #30 tab 08/10/19 Rx fluticasone propionate 100 1 inh INHALATION BID #60 each 08/10/19 Rx mcg/actuation blister powder for inhalation insulin aspart U-100 100 unit/mL See Rx Instructions SUB-Q TID #15 08/10/19 Rx (3 mL) subcutaneous pen ml MDD 30 units levothyroxine 200 mcg tablet 200 mcg PO QDAY #30 tab 08/10/19 Rx pantoprazole 40 mg tablet,delayed 40 mg PO QDAY #30 tab 08/10/19 Rx release sevelamer carbonate 800 mg tablet 800 mg PO .tidcc #90 tab 08/10/19 Rx sitagliptin 100 mg tablet 100 mg PO QDAY #30 tab 08/10/19 Rx trazodone 50 mg tablet 50 mg PO QHS PRN #30 tab 08/10/19 Rx vitamin B comp no.3-folic acid 1 1 tab PO QDAY #30 tab 08/10/19 Rx mg-vit C 60 mg-biotin 300 mcg tablet HYDROcodone/ACETAMINOPHEN 1 each PO Q6 6 Days #24 tab 11/20/19 Rx [Hydrocodone-Acetamin 10-325 mg] Allergies Allergy/AdvReac Type Severity Reaction Status Date / Time azithromycin Allergy Unknown Verified 10/21/19 17:37 codeine Allergy Unknown Verified 10/21/19 17:37 diphenhydramine Allergy Unknown Verified 10/21/19 17:37 [From Benadryl] divalproex sodium Allergy Unknown Verified 10/21/19 17:37 [From Depakote] guaifenesin [From Robitussin] Allergy Unknown Verified 10/21/19 17:37 promethazine [From Phenergan] Allergy Unknown Verified 10/21/19 17:37 red (food color) Allergy Unknown Verified 10/21/19 17:37 Medical - H&P: Exam - Constitutional Vitals: Temp Pulse Resp BP Pulse Ox 97.1 F 93 H 18 73/40 90 10/21/19 17:29 10/21/19 17:29 10/21/19 17:29 10/21/19 17:29 10/21/19 17:29 Exam: General: Drowsy but awakens, No acute Distress Eyes/N/T: legally blind Head/Neck: neck supple, normocephalic atraumatic CV: RRR, No murmurs, normal s1/s2 Pulm: Clear b/l, no wheezing/rhonchi/rales Abd: soft, nontender, +BS x4 Ext: no clubbing/cyanosis/edema Neuro: drowsy but awakens, follows commands, moves extremities, sensations intact Skin: warm/dry Medical - H&P: A/P - Narrative A/P Narrative: A: *ESRD *DM with retinopathy: *CAD *Hypothyroidism: *Hypertension: *GERD: *Depression: *Goals of care: Patient has desired hospice and is stopped hemodialysis P: -comfort care only -supportive measures -CM for placement unless pt becomes imminent
[2019-10-21] MEDS ORDERED: LACTOPEROXI/GLUC OXID/POT THIO 1 EACH GEL..EA. TOPICAL PRN (20:05)
[2019-10-21] MEDS ORDERED: ONDANSETRON 4 MG/2 ML VIAL IV PRN (20:05)
[2019-10-21] MEDS ORDERED: LOPERAMIDE 2 MG CAPSULE PO ONE (23:53)
[2019-10-22] MEDS ORDERED: LOPERAMIDE 2 MG CAPSULE PO PRN (01:43)
[2019-10-22] MEDS: DOCUSATE SODIUM 100 MG CAPSULE PO SCH ×3 (02:34→20:20)
[2019-10-22] MEDS: LORazepam 2 MG/ML VIAL IV PRN ×3 (05:15→20:15)
[2019-10-22] MEDS: 0.9 % SODIUM CHLORIDE 10 ML SYRINGE IV SCH ×3 (05:15→20:15)
--- NOTE | 2019-10-22 07:54 | Internal Med Progress Note ---
Medical - PN: Subj Patient information: Note initiated : 10/22/19 at 7:54 am Service Date, if different from initiated Date: [] Patient: Silvia Palma a 59 y/o F admitted on 10/21/19 for altered LOC. Chief Complaint: [] Interval history: Ms. Palma is a 59 year old F with history of end-stage renal disease, diabetes, CAD/CVA/HTN presents the ED for second time in 2 days wanting to go on hospice and stopping dialysis. She is missed at least a week of dialysis. And has been desiring to go hospice but this is been unable to be set up at home and thus presents the ED. Her caretakers have stated she is become more lethargic the past couple days as well. This is discussed with diabetes solutions specialist. Plan is to admit with comfort care focus and work with case management for possible placement unless she becomes imminent. 10/22 No overnight events or new complaints. Patient appears to be comfortable in bed. Review of Systems: denies headache/fever/chills/nausea/vomiting/chest or abdominal pain/cough/dyspnea/diarrhea. Otherwise see above. - Constitutional Vitals: Vital Signs Temp Pulse Resp BP Pulse Ox 98.5 F 89 20 81/43 96 10/22/19 07:23 10/21/19 20:12 10/22/19 07:23 10/22/19 07:23 10/22/19 07:23 Period Temp Pulse Resp BP Sys/Shah Pulse Ox Last 24 Hr 97.1 F-98.8 F 89-93 18-20 73-81/40-44 90-96 Intake and Output 10/21/19 10/22/19 10/22/19 21:59 05:59 13:59 Intake Total 360 Balance 360 Weight 59.647 kg Intake & Output: Intake & Output 10/21/19 10/22/19 10/22/19 21:59 05:59 13:59 Intake Total 360 Balance 360 Weight 59.647 kg Intake: Oral 360 Other: Meal Lucien crackers & saltines Percent of Meal Consumed 100% Feeding Ability Assist with Tray Set Up Stool Size Large Smear Stool Color Brown Brown Stool Consistency Liquid Loose # of times incontinent of 2 Bowels Exam: General: awake, No acute Distress Eyes/N/T: legally blind Head/Neck: neck supple, normocephalic atraumatic CV: RRR, No murmurs, normal s1/s2 Pulm: Clear b/l, no wheezing/rhonchi/rales Abd: soft, nontender, +BS x4 Ext: no clubbing/cyanosis/edema Neuro: awake, follows commands, moves extremities, Skin: warm/dry Medical - PN: Obj Da - Labs Meds: Medications Docusate Sodium (Colace) 100 mg PO BID [facility] Last Admin: 10/22/19 02:34 Dose: Not Given Documented by: Glucose Oxid/Lactoperoxid/Muramidas (Biotene) 1 each TOPICAL PRN PRN PRN Reason: Dry Mouth Loperamide HCl (Imodium) 2 mg PO PRN PRN PRN Reason: Diarrhea Lorazepam (Ativan) 0 mg IV Q1HP PRN; Protocol PRN Reason: ANXIETY/SEDATION Last Admin: 10/22/19 05:15 Dose: 1 mg Documented by: Morphine Sulfate (Morphine) 0 mg IV Q1HP PRN PRN Reason: Pain Ondansetron HCl (Zofran) 4 mg IV Q4HP PRN; Protocol PRN Reason: Nausea And Vomiting Sodium Chloride (Saline Flush) 10 ml IV Q8 [facility] Last Admin: 10/22/19 05:15 Dose: 10 ml Documented by: Medical - PN: A/P - Time Spent With Patient Total time spent is greater than 50% in coordination of care (as documented) at patient's floor/unit and/or counseling patient: - Narrative A/P Narrative: A: *ESRD *DM w/retinopathy: *CAD *Hypothyroidism: *Hypertension: *GERD: *Depression: *Goals of care: Patient has desired hospice and has stopped hemodialysis P: -comfort care only -supportive measures -CM for placement unless pt becomes imminent Medical - PN: Qual - VTE Deep Vein Thrombosis/Pulmonary Embolism Present on Admission: No
--- NOTE | 2019-10-22 11:44 | Discharge Summary ---
Medical - DS: Prov Patient information: Note initiated : 10/22/19 at 11:38 am Service Date, if different from initiated Date: [] Patient: Silvia Palma 59 y/o F admitted on 10/21/19 for altered LOC. Chief Complaint: [] Date of admission: 10/21/19 20:00 Primary care physician: PCP No Consults: 10/21/19 Consult to Physician [CONS] Stat Comment: Consulting Provider: Cheikh Alcazar Reason For Exam: Physician to Consult Medical - DS: Meds - Discharge Medications Prescriptions: LORazepam [Ativan] 1 - 2 mg PO Q2H PRN #30 oral.rajesh PRN Reason: Anxiety Hyoscyamine Sulfate [Levsin-Sl] 1 - 2 mg SL QID PRN #30 tab.subl PRN Reason: Secretions morphine SULFATE [Morphine Sulfate] 1 - 3 mg PO Q2H #30 ml Ondansetron [Zofran ODT] 4 mg SL Q4-6HP PRN #30 tablet PRN Reason: Nausea Active and Home Medications: Home Medications Clopidogrel Bisulfate [Plavix] 75 mg PO DAILY 12/05/18 [History Confirmed 10/22/19 Last Taken Unknown] Insulin Aspart [Novolog] See Protocol SQ ACHS 12/05/18 [History Confirmed 12/06/18 Last Taken Unknown] ramipril 1.25 mg capsule 1.25 mg PO QDAY #30 cap 07/13/19 [Rx Confirmed 07/21/19 Last Taken Unknown] B complex-vitamin C-folic acid 0.8 mg tablet 1 tab PO QDAY 07/21/19 [History Confirmed 07/21/19 Last Taken Unknown] calcium acetate 667 mg capsule 667 mg PO TID #30 cap 07/21/19 [Rx Confirmed 07/21/19 Last Taken Unknown] isosorbide mononitrate 30 mg tablet,extended release 24 hr 30 mg PO QDAY 07/21/19 [History Confirmed 07/21/19 Last Taken Unknown] clonidine HCl 0.2 mg tablet 0.2 mg PO TID PRN 07/27/19 [History Confirmed 10/22/19 Last Taken Unknown] albuterol sulfate 90 mcg/actuation aerosol inhaler 1 puff INHALATION Q6H PRN #8 g 08/10/19 [Rx Confirmed 10/22/19 Last Taken Unknown] calcitriol 0.5 mcg capsule 0.5 mcg PO 3XW #30 cap 08/10/19 [Rx Confirmed 10/22/19 Last Taken Unknown] fluticasone propionate 100 mcg/actuation blister powder for inhalation 1 inh INHALATION BID #60 each 08/10/19 [Rx Last Taken Unknown] insulin aspart U-100 100 unit/mL (3 mL) subcutaneous pen See Rx Instructions SUB-Q TID #15 ml MDD 30 units 08/10/19 [Rx Last Taken Unknown] levothyroxine 200 mcg tablet 200 mcg PO QDAY #30 tab 08/10/19 [Rx Confirmed 10/22/19 Last Taken Unknown] pantoprazole 40 mg tablet,delayed release 40 mg PO QDAY #30 tab 08/10/19 [Rx Confirmed 10/22/19 Last Taken Unknown] sevelamer carbonate 800 mg tablet 800 mg PO .tidcc #90 tab 08/10/19 [Rx Confirmed 10/22/19 Last Taken Unknown] sitagliptin 100 mg tablet 100 mg PO QDAY #30 tab 08/10/19 [Rx Last Taken Unknown] trazodone 50 mg tablet 50 mg PO QHS PRN #30 tab 08/10/19 [Rx Last Taken Unknown] vitamin B comp no.3-folic acid 1 mg-vit C 60 mg-biotin 300 mcg tablet 1 tab PO QDAY #30 tab 08/10/19 [Rx Confirmed 10/21/19 Last Taken Unknown] HYDROcodone/ACETAMINOPHEN [Hydrocodone-Acetamin 10-325 mg] 1 each PO Q6 6 Days #24 tab 10/20/19 [Rx Last Taken Unknown] Atorvastatin [Lipitor] 10 mg PO QDAY 10/21/19 [History Confirmed 10/22/19 Last Taken Unknown] Fish Oil 1,000 mg PO DAILY 10/21/19 [History Confirmed 10/22/19 Last Taken Unknown] Cholecalciferol (Vitamin D3) [D3 Dots] 2,000 unit PO QDAY 10/22/19 [History Confirmed 10/22/19 Last Taken Unknown] Lisinopril [Zestril] 20 mg PO QDAY 10/22/19 [History Confirmed 10/22/19 Last Taken Unknown] Ondansetron HCl [Zofran] 8 mg PO Q8HP PRN 10/22/19 [History Confirmed 10/22/19 Last Taken Unknown] Medical - DS: Hosp Hospital Course: Ms. Palma is a 59 year old F with history of end-stage renal disease, diabetes, CAD/CVA/HTN presents the ED for second time in 2 days wanting to go on hospice and stopping dialysis. She is missed at least a week of dialysis. And has been desiring to go hospice but this is been unable to be set up at home and thus presents the ED. Her caretakers have stated she is become more lethargic the past couple days as well. This is discussed with dynamics ax developer. Plan is to admit with comfort care focus and work with case management for possible placement unless she becomes imminent. 10/22 No overnight events or new complaints. Patient appears to be comfortable in bed. Discharge diagnosis: End-stage renal disease diabetes with neuropathy CAD Secondary discharge diagnosis: Hypothyroidism hypertension GERD depression - Time Spent with Patient Total time spent providing and/or coordinating discharge services: Greater than 30 minutes Medical - DS: Exam - Constitutional Vitals: Vital Signs Temp Pulse Pulse Resp BP BP Pulse Ox 10/22/19 07:23 98.5 F 20 81/43 96 10/21/19 20:12 98.8 F 89 18 78/44 92 10/21/19 17:29 97.1 F 93 H 18 73/40 90 Intake and Output 10/21/19 10/22/19 10/22/19 21:59 05:59 13:59 Intake Total 360 Balance 360 Intake: Oral 360 Other: Meal Lucien crackers & saltines Percent of Meal Consumed 100% Feeding Ability Assist with Tray Set Up Stool Size Large Smear Stool Color Brown Brown Stool Consistency Liquid Loose # of times incontinent of 2 Bowels Weight 59.647 kg Medical - DS: A/P - Patient/Caregiver Discharge Instructions Activity: increase activity as tolerated Diet: Regular Diet - Follow up Plan Follow up with: No,PCP [Primary Care Provider] - Prognosis: Critical Rehab Potential: Undetermined I certify that the patient requires SNF services: Yes Overall status at discharge: patient is not back to baseline Medical - DS: Qual - VTE Deep Vein Thrombosis/Pulmonary Embolism Present on Admission: No
[2019-10-23] MEDS: LORazepam 2 MG/ML VIAL IV PRN ×2 (01:11→04:46)
[2019-10-23] MEDS: 0.9 % SODIUM CHLORIDE 10 ML SYRINGE IV SCH ×3 (04:46→20:13)
--- NOTE | 2019-10-23 08:14 | Internal Med Progress Note ---
Medical - PN: Subj Patient information: Note initiated : 10/23/19 at 8:14 am Service Date, if different from initiated Date: [] Patient: Silvia Palma a 59 y/o F admitted on 10/21/19 for altered LOC. Chief Complaint: [] Interval history: Ms. Palma is a 59 year old F with history of end-stage renal disease, diabetes, CAD/CVA/HTN presents the ED for second time in 2 days wanting to go on hospice and stopping dialysis. She is missed at least a week of dialysis. And has been desiring to go hospice but this is been unable to be set up at home and thus presents the ED. Her caretakers have stated she is become more lethargic the past couple days as well. This is discussed with edge inker heels. Plan is to admit with comfort care focus and work with case management for possible placement unless she becomes imminent. 10/22 No overnight events or new complaints. Patient appears to be comfortable in bed. 10/23 less responsive today, pulmonary more rhonchorous. Unable to gather review of systems given change in mentation. - Constitutional Vitals: Vital Signs Temp Pulse Resp BP Pulse Ox 98.5 F 89 18 81/43 96 10/22/19 07:23 10/21/19 20:12 10/22/19 20:00 10/22/19 07:23 10/22/19 07:23 Period Temp Pulse Resp BP Sys/Shah Pulse Ox Last 24 Hr 18 Intake & Output: Intake & Output 10/22/19 10/23/19 10/23/19 21:59 05:59 13:59 Other: Stool Color Brown Stool Consistency Loose # of times incontinent of 1 Bowels Exam: General: lethargic, No acute Distress Eyes/N/T: legally blind Head/Neck: neck supple, normocephalic atraumatic CV: RRR, No murmurs, normal s1/s2 Pulm: b/l rhonchi, especially upper airway, no wheezing Abd: soft, nontender, +BS x4 Ext: no clubbing/cyanosis/edema Neuro: lethargic, less responsive, does not answer questions but seems to respond to voice Skin: warm/dry Medical - PN: Obj Da - Labs Meds: Medications Docusate Sodium (Colace) 100 mg PO BID [facility] Last Admin: 10/22/19 20:20 Dose: Not Given Documented by: Glucose Oxid/Lactoperoxid/Muramidas (Biotene) 1 each TOPICAL PRN PRN PRN Reason: Dry Mouth Loperamide HCl (Imodium) 2 mg PO PRN PRN PRN Reason: Diarrhea Lorazepam (Ativan) 0 mg IV Q1HP PRN; Protocol PRN Reason: ANXIETY/SEDATION Last Admin: 10/23/19 04:46 Dose: 1 mg Documented by: Morphine Sulfate (Morphine) 0 mg IV Q1HP PRN PRN Reason: Pain Last Admin: 10/23/19 00:11 Dose: 4 mg Documented by: Ondansetron HCl (Zofran) 4 mg IV Q4HP PRN; Protocol PRN Reason: Nausea And Vomiting Sodium Chloride (Saline Flush) 10 ml IV Q8 [facility] Last Admin: 10/23/19 04:46 Dose: 10 ml Documented by: Medical - PN: A/P - Time Spent With Patient Total time spent is greater than 50% in coordination of care (as documented) at patient's floor/unit and/or counseling patient: - Narrative A/P Narrative: A: *ESRD *DM w/retinopathy: *CAD *Hypothyroidism: *Hypertension: *GERD: *Depression: *Goals of care: Patient has desired hospice and has stopped hemodialysis P: -comfort care only -supportive measures -CM for placement unless pt becomes imminent Medical - PN: Qual - VTE Deep Vein Thrombosis/Pulmonary Embolism Present on Admission: No
[2019-10-23] MEDS: DOCUSATE SODIUM 100 MG CAPSULE PO SCH ×2 (11:51→21:45)
[2019-10-24] MEDS: 0.9 % SODIUM CHLORIDE 10 ML SYRINGE IV SCH ×3 (04:26→21:24)
[2019-10-24] MEDS: DOCUSATE SODIUM 100 MG CAPSULE PO SCH ×2 (08:01→21:14)
--- NOTE | 2019-10-24 08:11 | Internal Med Progress Note ---
Medical - PN: Subj Patient information: Note initiated : 10/24/19 at 8:11 am Service Date, if different from initiated Date: [] Patient: Silvia Palma a 59 y/o F admitted on 10/21/19 for altered LOC. Chief Complaint: [] Interval history: Ms. Palma is a 59 year old F with history of end-stage renal disease, diabetes, CAD/CVA/HTN presents the ED for second time in 2 days wanting to go on hospice and stopping dialysis. She is missed at least a week of dialysis. And has been desiring to go hospice but this is been unable to be set up at home and thus presents the ED. Her caretakers have stated she is become more lethargic the past couple days as well. This is discussed with property worker. Plan is to admit with comfort care focus and work with case management for possible placement unless she becomes imminent. 10/22 No overnight events or new complaints. Patient appears to be comfortable in bed. 10/23 less responsive today, pulmonary more rhonchorous. 10/24 Minimally responsive. Continues to decline. Unable to gather review of systems given change in mentation. - Constitutional Vitals: Vital Signs Temp Pulse Resp BP Pulse Ox 86.6 F L 82 8 L 79/53 100 10/24/19 07:04 10/23/19 08:00 10/24/19 07:04 10/24/19 07:04 10/24/19 07:04 Period Temp Pulse Resp BP Sys/Shah Pulse Ox Last 24 Hr 86.6 F 8-8 79/53 100 Intake and Output 10/23/19 10/24/19 10/24/19 21:59 05:59 13:59 Intake Total 0 Balance 0 Intake & Output: Intake & Output 10/23/19 10/24/19 10/24/19 21:59 05:59 13:59 Intake Total 0 Balance 0 Intake: Oral 0 Other: Stool Size Small Stool Color Brown Brown Stool Consistency Liquid Loose # Bowel Movements 2 1 Exam: General: lethargic minimally responsive, No acute Distress Eyes/N/T: legally blind Head/Neck: neck supple, normocephalic atraumatic CV: RRR, No murmurs, normal s1/s2 Pulm: b/l rhonchi,, no wheezing Abd: soft, nontender, +BS x4 Ext: no clubbing/cyanosis/edema Neuro: Minimally responsive, will open eyes to sternal rub, but does not attempt to answer any questions Skin: warm/dry Medical - PN: Obj Da - Labs Meds: Medications Docusate Sodium (Colace) 100 mg PO BID [facility] Last Admin: 10/24/19 08:01 Dose: Not Given Documented by: Glucose Oxid/Lactoperoxid/Muramidas (Biotene) 1 each TOPICAL PRN PRN PRN Reason: Dry Mouth Loperamide HCl (Imodium) 2 mg PO PRN PRN PRN Reason: Diarrhea Lorazepam (Ativan) 0 mg IV Q1HP PRN; Protocol PRN Reason: ANXIETY/SEDATION Last Admin: 10/23/19 04:46 Dose: 1 mg Documented by: Morphine Sulfate (Morphine) 0 mg IV Q1HP PRN PRN Reason: Pain Last Admin: 10/24/19 08:00 Dose: 4 mg Documented by: Ondansetron HCl (Zofran) 4 mg IV Q4HP PRN; Protocol PRN Reason: Nausea And Vomiting Sodium Chloride (Saline Flush) 10 ml IV Q8 [facility] Last Admin: 10/24/19 04:26 Dose: 10 ml Documented by: Medical - PN: A/P - Time Spent With Patient Total time spent is greater than 50% in coordination of care (as documented) at patient's floor/unit and/or counseling patient: - Narrative A/P Narrative: A: *ESRD *DM w/retinopathy: *CAD *Hypothyroidism: *Hypertension: *GERD: *Depression: *Goals of care: Patient has desired hospice and has stopped hemodialysis P: -comfort care only -supportive measures -CM for placement unless pt becomes imminent Medical - PN: Qual - VTE Deep Vein Thrombosis/Pulmonary Embolism Present on Admission: No
[2019-10-25] MEDS: 0.9 % SODIUM CHLORIDE 10 ML SYRINGE IV SCH (05:28)
--- NOTE | 2019-10-25 07:59 | Internal Med Progress Note ---
Medical - PN: Subj Patient information: Note initiated : 10/25/19 at 7:57 am Service Date, if different from initiated Date: [] Patient: Silvia Palma a 59 y/o F admitted on 10/21/19 for altered LOC. Chief Complaint: [] Interval history: Ms. Palma is a 59 year old F with history of end-stage renal disease, diabetes, CAD/CVA/HTN presents the ED for second time in 2 days wanting to go on hospice and stopping dialysis. She is missed at least a week of dialysis. And has been desiring to go hospice but this is been unable to be set up at home and thus presents the ED. Her caretakers have stated she is become more lethargic the past couple days as well. This is discussed with library director. Plan is to admit with comfort care focus and work with case management for possible placement unless she becomes imminent. 10/22 No overnight events or new complaints. Patient appears to be comfortable in bed. 10/23 less responsive today, pulmonary more rhonchorous. 10/24 Minimally responsive. Continues to decline. 10/25 Unresponsive. Appears eminent. Labored breathing. - Constitutional Vitals: Vital Signs Temp Pulse Resp BP Pulse Ox 97.1 F 58 L 6 L 63/47 89 L 10/24/19 18:45 10/24/19 18:45 10/24/19 18:45 10/24/19 18:45 10/24/19 18:45 Period Temp Pulse Resp BP Sys/Shah Pulse Ox Last 24 Hr 97.1 F 58 6 63/47 89 Intake and Output 10/24/19 10/25/19 10/25/19 21:59 05:59 13:59 Intake Total 0 Output Total 0 Balance 0 Intake & Output: Intake & Output 10/24/19 10/25/19 10/25/19 21:59 05:59 13:59 Intake Total 0 Output Total 0 Balance 0 Intake: Oral 0 Output: Void Amount 0 Other: Stool Size Moderate Small Stool Color Brown Brown Green Stool Consistency Loose Liquid # of times incontinent of 3 3 Bowels Exam: General: unresponsive, No acute Distress Eyes/N/T: legally blind CV: RRR, No murmurs, normal s1/s2 Pulm: mild b/l rhonchi, no wheezing, labored breathing Abd: soft, +BS x4 Ext: no clubbing/cyanosis/edema Neuro: unresponsive Medical - PN: Obj Da - Labs Meds: Medications Glucose Oxid/Lactoperoxid/Muramidas (Biotene) 1 each TOPICAL PRN PRN PRN Reason: Dry Mouth Loperamide HCl (Imodium) 2 mg PO PRN PRN PRN Reason: Diarrhea Lorazepam (Ativan) 0 mg IV Q1HP PRN; Protocol PRN Reason: ANXIETY/SEDATION Last Admin: 10/23/19 04:46 Dose: 1 mg Documented by: Morphine Sulfate (Morphine) 0 mg IV Q1HP PRN PRN Reason: Pain Last Admin: 10/25/19 05:27 Dose: 4 mg Documented by: Ondansetron HCl (Zofran) 4 mg IV Q4HP PRN; Protocol PRN Reason: Nausea And Vomiting Sodium Chloride (Saline Flush) 10 ml IV Q8 [facility] Last Admin: 10/25/19 05:28 Dose: 10 ml Documented by: Medical - PN: A/P - Time Spent With Patient Total time spent is greater than 50% in coordination of care (as documented) at patient's floor/unit and/or counseling patient: - Narrative A/P Narrative: A: *ESRD *DM w/retinopathy: *CAD *Hypothyroidism: *Hypertension: *GERD: *Depression: *Goals of care: Patient has desired hospice and has stopped hemodialysis P: -comfort care only -supportive measures -CM for placement unless pt becomes imminent -appears imminent Medical - PN: Qual - VTE Deep Vein Thrombosis/Pulmonary Embolism Present on Admission: No
[2019-10-25] MEDS: LORazepam 2 MG/ML VIAL IV PRN (10:07)
--- NOTE | 2019-10-25 11:05 | Death Note ---
Discharge Sum: Prov - Provider Patient information: Note initiated : 10/25/19 at 11:04 am Service Date, if different from initiated Date: [] Patient: Silvia Palma a 59 y/o F admitted on 10/21/19 for altered LOC. Chief Complaint: [] Primary care physician: PCP No Consults: 10/21/19 Consult to Physician [CONS] Stat Comment: Consulting Provider: Cheikh Alcazar Reason For Exam: Physician to Consult Discharge Sum: Diag - PCOD Cause of : Renal failure Discharge Sum: Summary - Date and Time Date of admission: 10/21/19 20:00 Date of : 10/25/19 Time of : 10:55 - Summary Details: Ms. Palma is a 59 year old F with history of end-stage renal disease, diabetes, CAD/CVA/HTN presents the ED for second time in 2 days wanting to go on hospice and stopping dialysis. She is missed at least a week of dialysis. And has been desiring to go hospice but this is been unable to be set up at home and thus presents the ED. Her caretakers have stated she is become more lethargic the past couple days as well. This is discussed with biomedical technician. Plan is to admit with comfort care focus and work with case management for possible placement unless she becomes imminent. 10/22 No overnight events or new complaints. Patient appears to be comfortable in bed. 10/23 less responsive today, pulmonary more rhonchorous. 10/24 Minimally responsive. Continues to decline. 10/25 Unresponsive. Appears eminent. Labored breathing. She at 1055. - Additional Data Attending physician: Cheikh Alcazar
== END 2019-10-25 18:00 | disposition expired | DRG 951 ==
LOC: ED 17:29 → MEDSUR 20:00
PROVIDERS: ADMIT Internal Medicine; ATTEND Internal Medicine